=== PATIENT | male | born 1955 | race Caucasian/White ===

== ENCOUNTER 2016-05-16 12:52 | Emergency (ER) | payer MEDICARE, MEDICAID ==
[~2016-05-16] VITALS: Ht 162.6 cm; Wt 84.4 kg
[~2016-05-16 12:52] MED LIST: HUMALOG100 UNITS/ SUBQ; METFORMIN500 MG PO; PRINIVIL20 MG PO; SIMVASTATIN20 M1 PO
[2016-05-16 13:01] VITALS: BP 148/65
[2016-05-16] MEDS ORDERED: CARDURA2 MG PO (13:01)
[2016-05-16] MEDS ORDERED: AMPICILLIN/SULBACTAM 3 GM VIAL IM ONE (14:00)
[2016-05-16] MEDS ORDERED: KETOROLAC 30 MG/ML VIAL IVP ONE (14:00)
--- NOTE | 2016-05-16 14:15 | NUR ---
61/M presents to ED for evaluation of right leg pain at [facility]. Pt states the pain started while using his prosthesis on Wednesday. Pt has redness to lower leg. Pt c/o 09/28. Pt denies any trauma or injury. Pt is AOX4, sinhala speaking.
--- NOTE | 2016-05-16 14:25 | NUR ---
Verbal order for Unasyn to be given IV instead of IM. I asked Dr. Ni if we could administer Unasyn IV since we are starting an IV and given Toradol IV. He gave a verbal order to give the Unasyn IV.
[2016-05-16] MEDS ORDERED: AMPICILLIN/SULBACTAM 3 GM in NACL 0.9% 100 ML IV ONE (14:30)
--- NOTE | 2016-05-16 14:42 | NUR ---
Patient appears to be resting comfortably in bed. Vital Signs within normal limits. Respirations even and unlabored.
[2016-05-16] MEDS ORDERED: NACL 0.9% 1,000 ML IV ONE ×2 (15:20→17:05)
[2016-05-16] MEDS ORDERED: INSULIN HUMAN REGULAR 100 UNITS/ML 10 ML VIAL IVP ONE (16:00)
--- NOTE | 2016-05-16 16:50 | NUR ---
Patient appears to be resting comfortably in bed. Vital Signs within normal limits. Respirations even and unlabored.
--- NOTE | 2016-05-16 17:36 | NUR ---
Family at bedside and was requesting to see if patient will receive an x-ray to right lower extremity. I asked Dr. Ni about ordering an x-ray and he stated he didn't need one. He stated he had an infection and that was what we were treating. I let the family at bedside know and they verbalized understanding.
--- NOTE | 2016-05-16 18:56 | NUR ---
CONTINUES TO WAIT FOR LACTIC ACID/BMP PRIOR TO DC
[2016-05-16 19:07] VITALS: BP 165/81
--- NOTE | 2016-05-16 19:12 | NUR ---
Patient discharged with v/s stable. Written and verbal after care instructions given and explained. Patient alert, oriented and verbalized understanding of instructions. Ambulatory with steady gait. All questions addressed prior to discharge. ID band removed. Patient advised to follow up with PMD. Rx of KEFLEX/TYLENOL W CODEINE given. Patient educated on indication of medication including possible reaction and side effects. Opportunity to ask questions provided and answered.
== END 2016-05-16 19:12 | disposition home or self-care (01) ==
LOC: MED 12:52
DX: L03.115 Cellulitis of right lower limb (principal); I10 Essential (primary) hypertension; E78.00 Pure hypercholesterolemia, unspecified; E11.9 Type 2 diabetes mellitus without complications; Z98.890 Other specified postprocedural states; Z79.4 Long term (current) use of insulin; Z79.899 Other long term (current) drug therapy
CPT/HCPCS: 36415; 80048; 80053; 82948; 83605; 85025; 85651; 87040; 96361; 96365; 96375; 99284; J0295; J1815; J1885; J7030